=== PATIENT | male | born 1945 | race Caucasian/White ===

== ENCOUNTER 2022-02-22 06:25 | Day surgery (SDC) | payer MEDICARE, BC ==
[2022-02-16 14:09] LABS: BASOPHILS # (AUTO) 0.1 X10'3 (0-0.2); BASOPHILS % (AUTO) 0.9 % (0-1); EOSINOPHILS # (AUTO) 0.2 X10'3 (0-0.9); LYMPHOCYTES # (AUTO) 2.1 X10'3 (1.1-4.8); MEAN CORPUSCULAR HEMOGLOBIN 29.1 PG (27.0-31.0); MEAN CORPUSCULAR HGB CONC 33.3 g/dL (33.0-36.5); MEAN CORPUSCULAR VOLUME 87.5 FL (78-98); MEAN PLATELET VOLUME 6.7 FL (7.4-10.4); MONOCYTES # (AUTO) 0.7 X10'3 (0-0.9); MONOCYTES % (AUTO) 9.8 % (2-12); NEUTROPHILS # (AUTO) 4.4 X10'3 (1.8-7.7); NEUTROPHILS % (AUTO) 58.3 % (42-75); PRE OP HEMATOCRIT 40.1 % (42.0-52.0); PRE OP HEMOGLOBIN 13.3 g/dL (14.0-17.9); PRE OP PLATELET COUNT 221 X10'3 (140-440); RED BLOOD COUNT 4.58 X10'6 (4.70-6.10); RED CELL DISTRIBUTION WIDTH 14.4 % (11.5-14.5)
[2022-02-16 14:26] LABS: ALBUMIN 3.9 G/DL (3.4-5.0); ALKALINE PHOSPHATASE 114 IU/L (46-116); BLOOD UREA NITROGEN 22 MG/DL (7-18); BUN/CREATININE RATIO 17.9 (5.4-32.0); CALCIUM 9.8 MG/DL (8.5-10.1); CHLORIDE 98 MMOL/L (99-107); CREATININE 1.23 MG/DL (0.60-1.10); PRE OP ALT 18 U/L (30-65); PRE OP ANION GAP 10 (8-16); PRE OP AST 15 U/L (10-37); PRE OP BILIRUB, TOTAL 0.5 MG/DL (0.0-1.0); PRE OP SODIUM 134 MMOL/L (135-145); TOTAL CARBON DIOXIDE 26.2 MMOL/L (24-32); eGFR 57 ML/MIN
[2022-02-16 14:29] LABS: PRE OP GLUCOSE 82 MG/DL (70-104)
[2022-02-22] VITALS (9 sets, daily range): BP systolic 144–163; BP diastolic 68–132
[~2022-02-22] VITALS: Ht 165.1 cm; Wt 71.1 kg
[~2022-02-22 06:25] MED LIST: LISI1TAB49 PO; TADA10TA14 PO; ceFAZolin inj. 2,000 MG in dextrose 5%-water 100 ML IV ONE; famotidine 20mg tablet PO ONE; ringers solution, lacted 1,000 ML IV SCH
[2022-02-22] MEDS ORDERED: LIDOcaine 1% 30ml preserv. free vial ONE (08:12)
[2022-02-22] MEDS ORDERED: BUPIVAcaine 0.5% inj/PF 30 ML ONE (08:12)
[2022-02-22] MEDS ORDERED: sevoflurane 250ml liquid IH ONE (08:16)
[2022-02-22] MEDS ORDERED: fentaNYL /PF 50mcg/ml 5ml ampule ONE (08:18)
[2022-02-22] MEDS ORDERED: midazolam 1 mg/ML 2ml injection ONE (08:18)
[2022-02-22] MEDS ORDERED: proCHLORperazine 10 MG/2 ml inj IV PRN (09:00)
[2022-02-22] MEDS ORDERED: acetaminophen 1,000mg/100ml IV 100 ML IV PRN (09:00)
[2022-02-22] MEDS ORDERED: morphine 2 MG/ML inj. syringe IV PRN (09:00)
[2022-02-22] MEDS ORDERED: meperidine/PF 25mg/ml syringe IV PRN (09:00)
[2022-02-22] MEDS ORDERED: ringers solution, lacted 1,000 ML IV SCH (09:00)
[2022-02-22] MEDS ORDERED: ondansetron/PF 4mg/2ml inj IV PRN (09:00)
[2022-02-22] MEDS ORDERED: hydrALAZINE 20mg/ml inj. IV PRN (09:00)
[2022-02-22] MEDS ORDERED: HYDROmorphone/PF 0.2 MG/ML SYRINGE IV PRN ×2 (09:00)
[2022-02-22] MEDS ORDERED: morphine 4 MG/ML inj SYRINge IV PRN (09:00)
[2022-02-22] MEDS ORDERED: labetalol 20mg/4ml (5mg/ml) syringe IV PRN (09:00)
[2022-02-22] MEDS ORDERED: BUPIVAcaine 0.5% inj/PF 30 ml vial IJ ONE (09:07)
[2022-02-22] MEDS ORDERED: propofol inj 20 ML IV ONE (09:27)
[2022-02-22] MEDS ORDERED: LIDOcaine 2% (20mg/ml) 5ml vial ONE (09:27)
[2022-02-22] MEDS ORDERED: ondansetron/PF 4mg/2ml inj ONE (09:27)
[2022-02-22] MEDS ORDERED: rocuronium 10mg/ml inj IV ONE (09:27)
[2022-02-22] MEDS ORDERED: dexamethasone sod phosphate 4mg/ml inj. ONE (09:27)
[2022-02-22] MEDS ORDERED: glycopyrrolate 0.2mg/ml inj ONE (09:35)
[2022-02-22] MEDS ORDERED: neostigmine methylsulfate 1 MG/ML 10ml vial ONE (09:35)
--- NOTE | 2022-02-22 09:45 | NUR ---
Received from OR via , accompanied by Anesthesiologist HANS AND OR NURSE EDNA and report given by Anesthesiolgist. PT IS DROWSY YET REPSONDS TO VERBAL STIMULI. 6LPM OF 02 ON MASK. 20G TO LEFT HAND; INFUSING LR. 3 LAP SITES WITH BANDAIDS; CDI. PT DOES NOT NEED TO VOID PRIOR TO DISCHARGE PER DR. AGUILAR. BP SLIGHTLY HIGH; RECHECK BP RETURNED TO WNL. Addendum: 02/22/22 at 1003 by Edith Thorne RN Amended: Links added.
[2022-02-22] MEDS ORDERED: HYDROcodone/acetaminophen 5mg/325mg tablet PO PRN (10:00)
--- NOTE | 2022-02-22 10:15 | NUR ---
I HAVE REVIEWED D/C INSTRUCTIONS WITH PATIENT AND THEY HAVE VERBALIZED UNDERSTANDING OF INSTRUCTIONS. PER IV REMOVED WITHOUT INCIDENT. PATIENT D/C HOME WITH ALL BELONGINGS AND FAMILY GAVE TRANSPORT Addendum: 02/22/22 at 1145 by Edith Thorne RN Amended: Links added.
== END 2022-02-22 11:15 | disposition home or self-care (01) ==
LOC: PAS 06:25
PROVIDERS: ATTEND Surgery
DX: K40.90 Unilateral inguinal hernia, without obstruction or gangrene, not specified as recurrent (principal); I10 Essential (primary) hypertension; Z79.899 Other long term (current) drug therapy; Z72.89 Other problems related to lifestyle; Z98.890 Other specified postprocedural states; Z80.0 Family history of malignant neoplasm of digestive organs; Z82.49 Family history of ischemic heart disease and other diseases of the circulatory system
CPT/HCPCS: 36415; 49650; 80053; 82948; 85025; 93005; C1758; C1781; J0690; J1100; J2250; J2405; J2704; J2710; J3010; J3490; J7030; J7060; J7120; S0020; Z7506; Z7508; Z7512; A4215; A4615; A4618

== ENCOUNTER 2024-11-20 13:01 | Outpatient (CLI) | payer MEDICARE, BC ==
[~2024-11-20 13:01] MED LIST changes: -ceFAZolin inj. 2,000 MG in dextrose 5%-water 100 ML IV ONE; -famotidine 20mg tablet PO ONE; -ringers solution, lacted 1,000 ML IV SCH
--- NOTE | 2024-11-22 08:51 | RADIOLOGY REPORT ---
CLINICAL INFORMATION: 79 years old, Male TECHNIQUE: Axial CT images of the right shoulder were obtained without IV contrast per [employer] protocol.. Coronal and sagittal reformatted images were obtained, reviewed, and stored. All CT scans at this medical facility are performed using dose modulation techniques as appropriate to a performed exam including the following: Automated exposure control was utilized; adjustment of the MA and/or KV according to patient size; and use of iterative reconstruction technique. CTDIvol = 14.06 mGy DLP = 331.53 mGy-cm COMPARISON: None FINDINGS: Severe osteoarthritic changes are seen at the glenohumeral joint with joint space narrowing, subchondral edema, subchondral cystic change, and marginal osteophytes. There is posterior decentering of the humeral head with respect of the glenoid articular surface. There is approximately 14 degrees glenoid retroversion. Moderate glenohumeral joint effusion. There is ill-defined calcification within the glenohumeral joint, including at the subscapularis recess and in the axillary recess. Prominent cyst at the glenoid measures up to 1.9 cm in greatest dimension. [id number] arthritic changes at the acromioclavicular joint. Visualized musculature appears grossly unremarkable with no significant fatty atrophy. No other significant soft tissue abnormality identified. Small calcified granulomas in the visualized portions of the right lung. Visualized portions of the right lung are otherwise clear. 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
== END 2024-11-20 23:59 | disposition home or self-care (01) ==
LOC: RAD 13:01
PROVIDERS: ATTEND Orthopaedic Surgery
DX: M19.011 Primary osteoarthritis, right shoulder (principal); J84.10 Pulmonary fibrosis, unspecified; M25.411 Effusion, right shoulder
CPT/HCPCS: 73200